=== PATIENT | female | born 1945 | race Caucasian/White ===

== ENCOUNTER 2024-06-15 09:45 | Outpatient (CLI) | payer MEDICARE, OTHER, MEDICAID ==
[~2024-06-15 09:45] MED LIST: AMIT50TA15 PO; ASPI-1264 PO; CITA-178 PO; DICL25TA8 PO; LOP25T PO; LORA1TAB PO; LOVA20TA2 PO; OMEP-84 PO; SULF1TAB49 PO; [UNRECOGNIZED DRUG - CODE] PO
--- NOTE | 2024-06-15 11:24 | RADIOLOGY REPORT ---
Procedure: CT CT CHEST Reason for study/Clinical History: PLEURODYNIA Comparison Study: NoneNone available at time of dictation. Exam Date: 06/15/2024 10:14 AM TECHNIQUE: Multidetector CT of the chest was performed from the lung apices to the upper abdomen with out the use of intravenous contract. Axial, coronal and sagittal multiplanar reformats were performed . Radiation Dose Information: CT Dose: CTDI volume is 5.7 mGy. Dose-length product is 222 mGy*cm The dose indicators for CT are the volume Computed Tomography (CT) Dose Index (CTDIvol) and the Dose Length Product (DLP), and are measured in units of mGy and mGy-cm, respectively. These indicators are not patient dose, but values generated from the CT scanner acquisition factors. The report includes radiation exposure data for exposures received during this examination. FINDINGS: Lower neck: Normal thyroid. Lungs: No focal consolidation, pleural effusion or pneumothorax. Biapical scarring. Heart/Vascular Structures: Normal heart size. No pericardial effusion. Lymph Nodes: No adenopathy Pleura: No pleural effusion or significant pneumothorax. Musculoskeletal: No acute osseous abnormality. Soft tissues: Normal. Upper abdomen: Limited portions of the upper abdomen are unremarkable. IMPRESSION: 1. No acute intrathoracic abnormality. Radiation optimization: All CT scans at this facility use at least one of these dose optimization beth hniques: automated exposure control mA and/or kV adjustment per patient size (includes targeted exam s where dose is matched to clinical indication) or iterative reconstruction.
== END 2024-06-15 23:59 | disposition home or self-care (01) ==
LOC: RAD 09:45
PROVIDERS: ATTEND Physician Assistant
DX: R07.81 Pleurodynia (principal)
CPT/HCPCS: 71250